=== PATIENT | female | born 1980 | race Caucasian/White ===

== ENCOUNTER 2025-08-28 14:00 | Inpatient (IN) | payer OTHER, MEDICAID, SELFPAY ==
[2025-08-28 13:57] VITALS: BMI 20.5
--- NOTE | 2025-08-28 14:01 | W.ED.PSYCHS ---
HPI - Psych General: Chief Complaint: Psychiatric Symptoms Stated Complaint: MHE Source: patient and EMS Mode of arrival: EMS Limitations: no limitations History of Present Illness: 44-year-old female who has a history of PTSD along with depression states she has been under a lot of stress lately and is having active suicidal thoughts. She states she does have multiple plans as well and is scared that she may harm herself. Has had previous psych admissions and is on psych meds she denies any worse improving factors. Associated symptoms: Reports depression and suicidal ideation Review of Systems Psych: Reports: depression and suicidal ideation Physical Exam Const: COMMON NORMALS: no acute distress, patient oriented x3 and healthy appearing HENMT: COMMON NORMALS: normocephalic and atraumatic HEAD & SCALP: normocephalic and atraumatic Eye: COMMON NORMALS: conjunctivae normal CONJUNCTIVA: Yes conjunctivae normal Neck/C-Spine: COMMON NORMALS: full ROM and supple Chest: COMMONS NORMALS: normal inspection of the chest Resp: COMMON NORMALS: normal respiratory effort Cardio: COMMON NORMALS: regular rate, regular rhythm and No murmurs present (Cardio) RATE: regular rate RHYTHM: regular rhythm Extremity: COMMON NORMALS: normal to inspection and full ROM Neuro: COMMON NORMALS: patient oriented x3, moves all extremities and no focal motor deficits Psych: COMMON NORMALS: mental status grossly normal, Normal thought process present and cooperative THOUGHT PROCESS: Normal thought process present THOUGHT CONTENT: Yes Suicidality present Skin: COMMON NORMALS: no rashes or lesions noted and no wounds GENERAL SKIN EXAM: no rashes or lesions noted Course Vital Signs: Vital signs: Vital Signs Temperature 99.5 F 08/28/25 14:12 Pulse Rate 89 08/28/25 14:12 Respiratory Rate 16 08/28/25 14:12 Blood Pressure 115/84 08/28/25 14:12 Pulse Oximetry 96 08/28/25 14:12 Oxygen Delivery Me thod Room Air 08/28/25 14:12 [facility] - Psych Medical Decision Making Patient presents here with suicidal ideations patient was placed on a 96-hour hold did review her lab work which shows no acute abnormality she is medically cleared I spoke to Dr. Hancock and will admit to the psych post. Medical Records I reviewed the patient's medical records. Lab Data I reviewed the patient's lab results. 08/28/25 14:33 08/28/25 14:33 Laboratory Results WBC 5.62 10^3/uL (3.29-11.43) 08/28/25 14: RBC 4.27 10^6/uL (3.85-5.65) 08/28/25 14:33 Hgb 12.60 g/dL (11.27-16.99) 08/28/25 14: Hct 38.1 % (36-47) 08/28/25 14: MCV 89.2 fl (85-98) 08/28/25 14:33 MCH 29.5 pg (27-33) 08/28/25 14: MCHC 33.1 g/dL (30-55) 08/28/25 14: RDW 12.1 % (12.1-15.1) 08/28/25 14: Plt Count 309 10^3/cmm (157-399) 08/28/25 14: MPV 8.3 fL (7.4-10.4) 08/28/25 14:33 Neut % (Auto) 48.5 % 08/28/25 14:33 Lymph % (Auto) 41.5 % 08/28/25 14:33 [place] % (Auto) 8.7 % 08/28/25 14:33 Eos % (Auto) 0.2 % 08/28/25 14:33 Baso % (Auto) 0.7 % 08/28/25 14:33 Neut # (Auto) 2.73 10^3/uL (1.8-7.7) 08/28/25 14:33 Lymph # (Auto) 2.3 10^3/uL (0.8-4.8) 08/28/25 14:33 [place] # (Auto) 0.5 10^3/uL (0.2-0.9) 08/28/25 14:33 Eos # (Auto) 0.0 10^3/uL (0.0-0.8) 08/28/25 14:33 Baso # (Auto) 0.0 10^3/uL (0.0-0.1) 08/28/25 14:33 Nucleated RBC % (auto) 0 % 08/28/25 14: Nucleated RBCs # 0.0 /100WBC 08/28/25 14:33 Sodium 141 mmol/L (136-145) 08/28/25 14:33 Potassium 4.1 mmol/L (3.5-5.1) 08/28/25 14:33 Chloride 103 mmol/L (98-107) 08/28/25 14:33 Carbon Dioxide 23 mmol/L (22-29) 08/28/25 14:33 Anion Gap 19.1 (5-19) H 08/28/25 14:33 BUN 7 mg/dL (6-20) 08/28/25 14:33 Creatinine 0.7 mg/dL (0.5-0.9) 08/28/25 14:33 GFR Calculation 90.1 mL/min (90-130) 08/28/25 14:33 Glucose 90 mg/dL (65-115) 08/28/25 14:33 Calculated Osmolality 290 mOsm/kg (285-295) 08/28/25 14:33 Calcium 9.8 mg/dL (8.5-10.5) 08/28/25 14:33 Total Bilirubin 0.2 mg/dL (0.15-1.2) 08/28/25 14:33 AST 18 U/L (0-32) 08/28/25 14:33 ALT 16 U/L (0-33) 08/28/25 14:33 Alkaline Phosphatase 82 U/L (35-105) 08/28/25 14:33 Total Protein 7.2 g/dL (6.6-8.7) 08/28/25 14:33 Albumin 4.7 g/dL (3.5-5.2) 08/28/25 14:33 Globulin 2.5 g/dL (1.3-4.6) 08/28/25 14:33 HCG, Qual Negative (Negative) 08/28/25 14:20 Salicylates < 0.3 mg/dL (3-10) L 08/28/25 14:33 Urine Opiates Screen Negative ng/mL (Negative) 08/28/25 14:20 Acetaminophen < 5.0 ug/mL (10-30) L 08/28/25 14:33 Ur Barbiturates Screen Negative ng/mL (Negative) 08/28/25 14:20 Valproic Acid 16.5 ug/mL (50-100) L 08/28/25 14:33 Ur Phencyclidine Scrn Negative ng/mL (Negative) 08/28/25 14:20 Ur Amphetamines Screen Negative ng/mL (Negative) 08/28/25 14:20 U Benzodiazepines Scrn Negative ng/mL (Negative) 08/28/25 14:20 Urine Cocaine Screen Negative ng/mL (Negative) 08/28/25 14:20 U Marijuana (THC) Screen Positive ng/mL (Negative) H 08/28/25 14:20 Ethyl Alcohol < 10 mg/dL (0-10) 08/28/25 14:33 No radiology studies performed this visit Discharge Plan Discharge Patient Disposition: Admitted As Inpatient Clinical Impression: Suicidal ideation Condition: Stable Coding Level of Care Code ED Lead Caregiver for Tabatha Castro
[2025-08-28 14:12] VITALS: BP 115/84; PULSE 89; RESP 16; TEMP 37.5; O2SAT 96
[2025-08-28 14:29] LABS: HCG Qualitative Urine. Negative (Negative)
[2025-08-28 14:35] LABS: PCP Screen Urine Negative (Negative)
[2025-08-28 14:40] LABS: Hematocrit 38.1 % (36-47); Hemoglobin 12.60 g/dL (11.27-16.99); Mean Corpuscular HGB Conc 33.1 g/dL (30-55); Mean Corpuscular Hemoglobin 29.5 pg (27-33); Mean Corpuscular Volume 89.2 fl (85-98); Nucleated Red Blood Cells % 0 %; Platelet Count 309 10^3/cmm (157-399); Red Blood Count 4.27 10^6/uL (3.85-5.65); White Blood Count 5.62 10^3/uL (3.29-11.43)
[2025-08-28 15:01] LABS: Alanine Aminotransferase 16 U/L (0-33); Albumin Level 4.7 g/dL (3.5-5.2); Alkaline Phosphatase 82 U/L (35-105); Anion Gap 19.1 (5-19); Aspartate Amino Transferase 18 U/L (0-32); Blood Urea Nitrogen 7 mg/dL (6-20); Calcium 9.8 mg/dL (8.5-10.5); Carbon Dioxide 23 mmol/L (22-29); Chloride 103 mmol/L (98-107); Creatinine Clr Calc Pharmacy 86.5463; Globulin 2.5 g/dL (1.3-4.6); Glucose 90 mg/dL (65-115); Osmolality Calculated 290 mOsm/kg (285-295); Potassium 4.1 mmol/L (3.5-5.1); Sodium 141 mmol/L (136-145); Total Protein 7.2 g/dL (6.6-8.7)
[2025-08-28 15:02] LABS: Acetaminophen < 5.0 ug/mL (10-30); Alcohol Level < 10 mg/dL (0-10); Salicylate < 0.3 mg/dL (3-10)
--- NOTE | 2025-08-28 15:03 | PC.NURSE ---
Involuntary 96 hour hold rights read and reviewed with patient. Patient verbalized understandings and copy of rights given to patient.
[2025-08-28 15:39] VITALS: BP 111/80; PULSE 87; RESP 16; TEMP 37.1; O2SAT 98
--- NOTE | 2025-08-28 16:02 | CTR_ITS ---
PROCEDURE INFORMATION: Exam: CT Head Without Contrast Exam date and time: 08/28/2025 6:08 PM Age: 44 years old Clinical indication: Injury or trauma; Trauma, hit back of head on wall x2 TECHNIQUE: Imaging protocol: Computed tomography of the head without contrast. Radiation optimization: All CT scans at this facility use at least one of these dose optimization techniques: automated exposure control; mA and/or kV adjustment per patient size (includes targeted exams where dose is matched to clinical indication); or iterative reconstruction. COMPARISON: No relevant prior studies available. RADIATION DOSE METRICS: Total DLP (mGy-cm): 1062.6 FINDINGS: Brain: No acute infarction, hemorrhage, mass, or extra-axial fluid collection is identified. No midline shift. Cerebral ventricles: No hydrocephalus. Paranasal sinuses: Paranasal sinuses are grossly clear. Mastoid air cells: Mastoid air cells are grossly clear. Bones: Calvarium appears intact. Soft tissues: Unremarkable. CT/CT head wo con* [id number] IMPRESSION: No acute intracranial abnormality.
--- NOTE | 2025-08-28 16:23 | PC.NURSE ---
1551 Code 10 in NPU was called for pt becoming upset, screaming and yelling at staff. Pt began pulling her own hair with both hands and banged the back of her head on the wall in the hallway very hard x2. Staff and security did have to restrain with hands on technique to ensure pt's safety. Administered 5mg IM Haldol, 2mg IM Ativan, 50mg IM Benadryl to the right deltoid in upper and lower positions, pt tolerated well. Pt walked to room and laid down on bed. House Soup, Security, along with several other nursing staff were present.
[2025-08-28] MEDS: diphenhydrAMINE 50 mg/mL SDV 1mL IM (16:29)
[2025-08-28] MEDS: haloperidol inj 5 mg/mL INJ 1 mL IM (16:30)
[2025-08-28] MEDS: LORazepam 1 MG/0.5 ML injection 2 MG IM (16:30)
--- OUTSIDE RECORDS SUMMARY | 2025-08-28 16:49 | XMS_ITS | Encounter Summary ---
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
--- OUTSIDE RECORDS SUMMARY | 2025-08-28 16:49 | XMS_ITS | Encounter Summary ---
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
--- OUTSIDE RECORDS SUMMARY | 2025-08-28 16:49 | XMS_ITS | Clinical Summary ---
Author Organization [facility] er Address [address] [place] [address] Care Team Providers Care Skate Maker Name Role Phone Day, Noris Howard MD Primary Care Provider [phone] Allergies Active Allergy Reactions Criticality Noted Date Comments Cephalexin Shortness of breath,Hives,Edema Reaction: DYSPNEA, HIVES, SWELLING, Penicillins Other (See comments) Reaction: UNKNOWN Sulfa (Sulfonamide Antibiotics) Shortness of breath,Hives,Edema Reaction: DYSPNEA, HIVES, SWELLING, Medications venlafaxine XR (EFFEXOR-XR) 150 mg 24 hr capsule Take 2 capsules (300 mg total) by mouth daily 12/14/2023 Active clonazePAM (KlonoPIN) 0.5 mg tablet Take 1 tablet (0.5 mg total) by mouth 2 (two) times a day as needed 08/23/2024 Active QUEtiapine 150 mg tablet Take 150 mg by mouth daily 08/23/2024 Active traZODone (DESYREL) 100 mg tablet Take 1 tablet (100 mg total) by mouth as needed 08/23/2024 Active docusate sodium (COLACE) 100 mg capsuleIndicati ons:constipatio n Take 1 capsule (100 mg total) by mouth 2 (two) times a day 60 capsule 09/14/2024 Active azithromycin (Zithromax Z-Leobardo) 250 mg tablet Take 1 tablet (250 mg total) by mouth daily Take first 2 tablets together, then 1 every day until finished. 6 tablet 05/14/2025 Active dicyclomine (BENTYL) 20 mg tablet Take 1 tablet (20 mg total) by mouth 2 (two) times a day 60 tablet 05/14/2025 Active Active Problems Problem Noted Date Diagnosed Date History of rectal cancer 09/14/2024 Change in bowel habits 09/14/2024 Abdominal pain 09/14/2024 Constipation 09/14/[address] scan 09/14/2024 Protein-calorie malnutrition, severe 12/22/2023 Hypokalemia 03/19/2018 Severe episode of recurrent major depressive disorder, without psychotic features 03/19/2018 Suicide attempt 03/19/2018 Intentional drug overdose 03/18/2018 Small bowel obstruction 08/16/2017 Severe recurrent major depre ssion w/psychotic features, mood-congruent 04/23/2016 Depression 04/19/2016 Dermatosis 04/19/2016 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 Medical History Medical History Date Comments Small bowel obstruction (HCC) Cancer (HCC) Drug overdose Drug abuse Depression Suicidal ideation Social History Tobacco Use Types Packs/Day Years Used Date Smoking Tobacco: Former Cigarettes AUDIT-C Answer Date Recorded Q1: How often do you have a drink containing alcohol? Never 09/27/2024 Q2: How many drinks containi ng alcohol do you have on a typical day when you are drinking? Patient does not drink Q3: How often do you have si x or more drinks on one occasion? Never 09/27/2024 Personal Safety Answer Date Recorded Have you ever been in or are you currently in a harmful physical or emotional relationship or is someone making you feel afraid or unsafe? Denies 05/14/2025 Comments No Sex and Gender Information Value Date Recorded Sex Assigned at Not on file Legal Sex Female 7:14 PM CREDIT PROFESSIONAL Gender Identity Not on file Sexual Orientation Not on file Obstetrics History Last Filed Vital Signs Vital Sign Reading Time Taken Comments Blood Pressure 105/75 05/14/2025 11:00 PM CDT Pulse 73 05/14/2025 11:00 PM CDT Temperature 36.8 C (98.2 F) 05/14/2025 4:57 PM CDT Respiratory Rate 18 05/14/2025 11:00 PM CDT Oxygen Saturation 100% 05/14/2025 11:00 PM CDT Inhaled Oxygen Concentration - - Weight 59 kg (130 lb) 05/14/2025 4:57 PM CDT Height 160 cm (5' 3 ) 09/14/2024 9:55 AM CREDIT PROFESSIONAL Body Mass Index 23.03 09/14/2024 9:55 AM CREDIT PROFESSIONAL Plan of Treatment Health Maintenance Due Date Last Done Comments Breast Cancer Screening-Mammogram 1978 Cervical Cancer Screening 1978 Depression Screening 1978 Hepatitis C Screening 1978 Hepatitis B Screening 1996 Regular Well Visit/Exam 18-64 1996 Influenza Vaccine (#1) 2025 Colon Cancer Screening-Colonoscopy 09/27/20342023 DTaP/Tdap/Td Vaccine (2 - Td or Tdap) 02/07/2035 02/07/2025 HPV Vaccines Aged Out No longer eligi ble based on patient's age to complete this topic Pneumococcal vaccine <65 Aged Out No longer eligible based on patient's age to complete this topic Procedures Procedure Name Priority Date/Time Associated Diagnosis Comments COLONOSCOPY 09/27/2024 12:08 PM CREDIT PROFESSIONAL from Last 3 Months or Most Recently Relevant to Health Maintenance Results * Colonoscopy (09/27/2024 12:08 PM CREDIT PROFESSIONAL) Anatomical Region Laterality Modality Other Narrative Procedure Note Olayinka Hsieh MD - 09/27/2024 12:08 PM CST Patient Name: Chelsey Stone Procedure Date: 09/27/2024 12:08PM Date of : 1980 Age: 43 Admit Type: Outpatient Gender: Female Note Status: Finalized Attending MD: Olayinka Stephens M.D. Specimen(s) removed?: Specimen(s) was/were not removed Procedure: Colonoscopy Pre-Op Diagnosis: High risk colon cancer surveillance: Personalhistory of rectal cancer, Last colonoscopy: 2016, Last colonoscopy 5 years ago, h/o Abdomino Perineal Resection Providers: Olayinka Browne M.D., Alfa Molina, Spike Sam, ASSISTANT PROFESSOR OF PHILOSOPHY Referring MD: Lam Clements.N.Sabra (Referring MD) Medicines: Monitored Anesthesia Care Complications: No immediate complications. Procedure: The benefits, risks and alternatives of the procedure and sedationwere discussed and informed consent was obtained. All questions were answered. Please refer to the signed informed consent document in the medical record. The scope was passed under direct vision. The COLONSN# [id number] [id number] was introduced through the descending colostomyand advanced to the the cecum, identified by appendiceal orifice and ileocecal valve. The colonoscopy was performed without difficulty.The patient tolerated the procedure well. The quality of the bowel preparation was excellent. The bowel preparation used was Miralax via single dose instruction. Bowel Prep was administered using a singledose. Findings: The entire examined colon appeared normal. Estimated Blood Loss: Estimated blood loss: none. Post-Op Diagnosis: - The entire examined colon is normal. - No specimens collected. Recommendation: - Discharge patient to home. - Repeat colonoscopy in 3 years for surveillance. Olayinka Avendaño M.D. Olayinka Browne M.D. 09/27/2024 12:28:21 PM This report has been signed electronically. Number of Addenda: 0 Note Initiated On: 09/27/2024 12:08 PM [address] [place], [place] [address] Olayinka Browne MD ENDOSCOPY PRO CEDURES Final Result from Last 3 Months or Most Recently Relevant to Health Maintenance Insurance [place] [employer] [facility] DUAL COMPLETE [id number] [facility] DUAL COMPLETE [id number] Care Teams Skate Maker Relationship Specialty Start Date End Date Day, Noris Howard MD PCP - General Family Medicine 05/14/25
--- OUTSIDE RECORDS SUMMARY | 2025-08-28 16:49 | XMS_ITS | Clinical Summary ---
Author Organization [facility] Address [address], [place] [address] Phone Care Team Providers Care Graphite Pan Drier Tender Name Role Phone Qiana Madrid Primary Care Provider [phone] Allergies Active Allergy Reactions Criticality Noted Date Comments Cephalexin Shortness of Breath/Wheezing High 12/20/2024 Penicillins Shortness of Breath/Wheezing High 12/20/2024 Sulfa (Sulfonamide Antibiotics) Shortness of Breath/Wheezing High 12/20/2024 Medications venlafaxine 150 mg Extended Release 24 hour tablet Take 150 mg by mouth 2 times daily. Active QUEtiapine (SEROquel) 25 mg tablet Take 25 mg by mouth 2 times daily. At Breakfast and noon Active QUEtiapine (SEROquel) 100 mg tablet Take 150 mg by mouth daily at bedtime. Active polyethylene glycol (MIRALAX) 17 gram Powder in Packet Take 1 Packet (17 Grams) by mouth daily. Active Active Problems Problem Noted Date Diagnosed Date SBO 12/20/2024 Social History Tobacco Use Types Packs/Day Years Used Date Smoking Tobacco: Former Cigarettes Q uit: 2021 Smokeless Tobacco: Never Alcohol Use Standard Drinks/Week Comments Not Currently 0 (1 standard drink = 0.6 oz pur e alcohol) Feeling Safe Answer Date Recorded Do you worry about feeling s afe and happy with the people in your life? No 12/21/2024 Food Insecurity Answer Date Recorded Do you find you are eating l ess than you should because you can t pay for food? No 12/21/2024 Transportation Needs Answer Date Record ed Have you gone without health care because you didn t have a way to get there? Or worry about transportation for future doctor visits, pharmacy picking tech medication, etc.? No 2024 Housing Stability Answer Date Recorded Do you worry you won t have a steady place to sleep or struggle to pay rent or mortgage? No 12/21/2024 Utility Needs Answer Date Recorded Do you have difficulty payin g for utility costs (electric, water or gas bills)? No 12/21/2024 Medication Needs Answer Date Recorded Have you skipped taking medi cation due to cost or worry you can t afford new medications? No 12/21/2024 Feeling Safe Answer Date Recorded Are you in a relationship wi th someone who hurts you emotionally and/or physically? No 12/20/2024 Food Insecurity Answer Date Recorded Patient needs follow up regardin 03/09/2025 Transportation Needs Answer Date Record ed Patient needs follow up regardin 03/09/2025 Housing Stability Answer Date Recorded Social/Environmental Concerns No concerns Utility Needs Answer Date Recorded Patient needs follow up regardin 03/09/2025 Comments No Sex and Gender Information Value Date Recorded Sex Assigned at Not on file Legal Sex Female 10:[address] LIGHT CLEANER Gender Identity Not on file Sexual Orientation Not on file Last Filed Vital Signs Vital Sign Reading Time Taken Comments Blood Pressure 90/56 12/25/2024 11:[address] LIGHT CLEANER Pulse 72 12/25/2024 11:[address] LIGHT CLEANER Temperature 37.1 C (98.8 F) 12/25/2024 11:[address] LIGHT CLEANER Respiratory Rate 17 12/25/2024 11:[address] LIGHT CLEANER Oxygen Saturation 97% 12/25/2024 11:[address] LIGHT CLEANER Inhaled Oxygen Concentration - - Weight 59.9 kg (132 lb) 12/20/2024 1:[address] LIGHT CLEANER Height 160 cm (5' 3 ) 12/20/2024 1:[address] LIGHT CLEANER Body Mass Index 23.38 12/20/2024 1:[address] LIGHT CLEANER Plan of Treatment Health Maintenance Due Date Last Done Comments DTAP/TDAP/TD VACCINES (1 - Tdap) 1997 HEPATITIS B VACCINES (1 of 3 - 19+ 3-dose series) 1997 HPV/Cotest (21-29) 1999 CERVICAL CANCER SCREENING 2008 HPV/Cotest (30-65) 2008 PAP SMEAR 2008 BREAST CANCER SCREENING 2018 FIT-DNA Q 3 years 2023 FIT/FOBT Q 1 year 2023 Flex Sig/CT Colonography Q 5 years 2023 INFLUENZA VACCINE (#1) 2025 COLORECTAL SCREENING 09/27/2034 09/27/2024, 09/27/2024 Colorectal Cancer Screening 09/27/2034 HPV VACCINES Aged Out No longer eligi ble based on patient's age to complete this topic Insurance [facility] DUAL COMPLETE [facility] HMO SNP Care Teams Graphite Pan Drier Tender Relationship Specialty Start Date End Date Qiana Madrid, VPK TEACHER [address] [facility] [place] [phone] PCP - General Nurse Practitioner Family 12/21/24
--- OUTSIDE RECORDS SUMMARY | 2025-08-28 16:49 | XMS_ITS | Encounter Summary ---
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
[2025-08-28 18:02] VITALS: BP 102/66; PULSE 112; RESP 16; TEMP 37.1; O2SAT 97
[2025-08-28] MEDS: divalproex ER 500 mg Tablet (24H) PO (18:31)
[2025-08-28] MEDS: venlafaxine ER (24HR) 150 mg Capsule PO (18:31)
--- NOTE | 2025-08-29 00:04 | PC.NURSE ---
pt rounding sitter with pt. new 1:1 sheet given. no needs at this time. pt resp even and unlabored.
[2025-08-29 06:00] VITALS: BP 103/66; PULSE 77; RESP 17; TEMP 36.5; O2SAT 98
[2025-08-29] MEDS: divalproex ER 500 mg Tablet (24H) PO (08:17)
[2025-08-29] MEDS: venlafaxine ER (24HR) 150 mg Capsule PO (08:17)
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
[2025-08-29 14:00] VITALS: RESP 16
[2025-08-29] MEDS: divalproex DR 500 mg Tablet PO (17:06)
[2025-08-29 20:21] VITALS: BP 85/55; PULSE 82; RESP 18; TEMP 36.8; O2SAT 97
--- NOTE | 2025-08-29 20:50 | PC.NURSE ---
BAG CHANGE PT CHANGED HER COLOSTOMY BAG AT THIS TIME WITH THIS NURSE AND SITTER PRESENT. NO INCIDENT AT THIS TIME.
--- NOTE | 2025-08-30 00:05 | PC.NURSE ---
pt rounding no needs for sitter at this time. pt resting with eyes closed.
[2025-08-30 06:00] VITALS: BP 103/67; PULSE 60; RESP 16; TEMP 36.4; O2SAT 97
[2025-08-30] MEDS: divalproex DR 500 mg Tablet PO (08:22)
--- NOTE | 2025-08-30 12:41 | PC.NURSE ---
Pt. is having a come apart over her bra getting wet when it fell into the sink while she was taking a shower. Pt. is cursing loudly and very agitated.
--- NOTE | 2025-08-30 13:06 | DCPLANNER ---
Pt was given IMM and rights explained. Copy placed in pts file.
[2025-08-30 14:00] VITALS: BP 110/60; PULSE 60; RESP 16
--- NOTE | 2025-08-30 15:34 | P.NPUPN_ITS ---
Subjective NPU 2 Subjective: 44-year-old female admitted with a histo ry of borderline personality disorder, PTSD and depression. The patient had reported that she had been feeling better. She reported no significant worsening of mood with a switch from extended release medications to immediate release medications. She had reported that she was feeling more confident about going to live in her new place in [facility]. She had reported motivation to receiving follow-up for her colon cancer. She reported no side effects from her medication regimen. She had been compliant on the milieu with no episodes of aggression reported. She had denied any suicidal ideation today. Mental Status Exam 2 MSE Comments: The patient is a casually dressed thin white female who was alert and oriented to person, place, time, and situation. Her speech was normal in regards to rate, rhythm, and prosody. There was no evidence of any abnormal involuntary motor movements, tics, or tremors appreciated. Her mood was described as better. Her affect was mood congruent and less restricted today. Her thought process was linear, logical, and goal-directed. Thought content revealed suicidal ideation with no active plan revealed. She denied any homicidal ideation. She did not appear to be responding to internal stimuli. There was no evidence of any delusional thinking. She denied any auditory or visual hallucinations. Her recent and remote memory were grossly intact. Her insight was fair. Her judgment was improving. Her impulse control remained guarded. The patient's colostomy bag was present and appeared clean and well- kept. Vitals/I&O/Wt Last Vital Signs Temp 97.6 F 08/30/25 06:00 Pulse 60 08/30/25 14:00 Resp 16 08/30/25 14:00 BP 110/60 08/30/25 14:00 Pulse Ox 97 08/30/25 06:00 O2 Del Method Room Air 08/30/25 06:00 Data NPU 08/28/25 14:33 08/28/25 14:33 A&P Assessment and plan 1. MDD (major depressive disorder), recurrent severe, without psychosis: 2. PTSD (post-traumatic stress disorder): 3. Suicidal ideation: Plan: 44-year-old female with a history of borderline personality disorder, PTSD, and major depressive disorder currently reporting suicidal ideation with increase stress from his father her father's recent illness and recent exacerbation of her PTSD symptoms. #1.? Engage patient in individual milieu and group therapy.? #2 Encourage sober living after discharge at the highest level of care at which the patient is willing to commit #3??? Restart outpatient medications but switch to immediate release medications as extended release medications do cause more inconsistency in absorption with hx of colon removal and reduced colon length. #4?? TO-15 minute checks? #5?? likely d/c tommorow. PDMP PDMP Reviewed: Not Reviewed Involuntary Hold Information 2 Hold Status: Legal Status: 96 Hour Hold Date/Time Hold Expires: 09/03/25 @ 14:18 Attestations NPU 2 Medical Necessity Statement*: Inpatient hospitalization is medically necessary and deemed to ?be ?the clinically appropriate intervention ?at this time.? We will monitor/initiate medications and make changes as indicated. The patient?s likely length of stay 1-2 days. Coding Level of Care Code Acute Code for g Fwd Diagnoses MDD (major depressive disorder), recurrent severe, without psychosis F33.2 PTSD (post-traumatic stress disorder) F43.10 Suicidal ideation R45.535
[2025-08-30 19:57] VITALS: BP 106/65; PULSE 70; RESP 16; TEMP 36.8; O2SAT 95
[2025-08-31 06:00] VITALS: BP 110/69; PULSE 62; RESP 16; TEMP 36.3; O2SAT 99
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
[2025-08-31 08:06] VITALS: BP 110/69; PULSE 62; RESP 16; TEMP 36.3; O2SAT 99
== END 2025-08-31 08:10 | disposition home or self-care (01) | DRG 885 ==
LOC: ER 15:14 → NP 15:15
PROVIDERS: Admitting Provider Psychiatry & Neurology Psychiatry; Emergency Provider Emergency Medicine; Visit Provider Psychiatry & Neurology Psychiatry
DX: F33.2 Major depressive disorder, recurrent severe without psychotic features (principal); R45.851 Suicidal ideations; F43.10 Post-traumatic stress disorder, unspecified; Z85.038 Personal history of other malignant neoplasm of large intestine; Z90.49 Acquired absence of other specified parts of digestive tract; Z81.8 Family history of other mental and behavioral disorders; Z62.810 Personal history of physical and sexual abuse in childhood
CPT/HCPCS: 36415; 70450; 80053; 80164; 80306; 80307; 81025; 85025; 96372; 97150; 97165; 99285; J1200; J1630; J2060; J9999

== ENCOUNTER → 2025-10-08 09:32 | Outpatient (BNVA) | payer OTHER, MEDICAID, SELFPAY | PROVIDERS: PCP Nurse Practitioner; Visit Provider Nurse Practitioner | DX: Z93.3 Colostomy status (principal); Z15.060 Genetic susceptibility to colorectal cancer; Z15.068 Genetic susceptibility to other malignant neoplasm of digestive system; Z15.07 Genetic susceptibility to malignant neoplasm of urinary tract; Z15.09 Genetic susceptibility to other malignant neoplasm; C18.9 Malignant neoplasm of colon, unspecified; Z79.899 Other long term (current) drug therapy; F33.2 Major depressive disorder, recurrent severe without psychotic features | CPT/HCPCS: 80053; 80061; 84443; 85025 ==